=== PATIENT | female | born 1935 ===

== ENCOUNTER 2018-05-03 09:59 | Emergency (ER) | payer MEDICARE ==
[2018-05-03 10:18] VITALS: BP 146/69
--- NOTE | 2018-05-03 10:29 | ED ---
Medical Screening - HPI Summary HPI Summary: 82-year-old female presents for medication refill today. Since she's ran out of her levothyroxine. She lives in [place] and has a primary there but has not seen her recently. She has a follow-up in a month but has not had lab work done recently. She says she's been on this dose of levothyroxine for years. She denies any symptoms. No chest pain or shortness. She denies any fatigue. She has one dose of the medication left. - History of Current Complaint Chief Complaint: UCGeneralIllness Stated Complaint: REFILL RX Time Seen by Provider: 05/03/18 10:17 PMH/Surg Hx/FS Hx/Imm Hx Endocrine/Hematology History: Reports: Hx Thyroid Disease Cardiovascular History: Denies: Hx Myocardial Infarction - Surgical History Surgery Procedure, Year, and Place: hysterectomy. appendectomy. Laser eye surgery Infectious Disease History: No Infectious Disease History: Denies: Traveled Outside the [place] in Last 30 Days - Family History Known Family History: Positive: Other - thyroid - Social History Alcohol Use: None Substance Use Type: Reports: None Smoking Status (MU): Never Smoked Tobacco Review of Systems Negative: Fever Negative: Chest Pain Negative: Shortness Of Breath All Other Systems Reviewed And Are Negative: Yes Physical Exam Triage Information Reviewed: Yes Vital Signs On Initial Exam: Initial Vitals Temp Pulse Resp BP Pulse Ox 98.1 F 62 18 146/69 98 05/03/18 10:10 05/03/18 10:10 05/03/18 10:10 05/03/18 10:10 05/03/18 10:10 Vital Signs Reviewed: Yes Appearance: Positive: Well-Appearing Skin: Positive: Warm, Dry Head/Face: Positive: Normal Head/Face Inspection Eyes: Positive: Normal, Conjunctiva Clear ENT: Positive: Pharynx normal Respiratory/Lung Sounds: Positive: Clear to Auscultation, Breath Sounds Present Cardiovascular: Positive: Normal, RRR Abdomen Description: Positive: Nontender, Soft Bowel Sounds: Positive: Present Musculoskeletal: Positive: Normal Neurological: Positive: Normal Psychiatric: Positive: Normal Diagnostics - Vital Signs Vital Signs Temp Pulse Resp BP Pulse Ox 05/03/18 10:10 98.1 F 62 18 146/69 98 - Laboratory Lab Statement: Any lab studies that have been ordered have been reviewed, and results considered in the medical decision making process. Course/Dx - Course Course Of Treatment: 82-year-old female presents for medication refill today. Since she's ran out of her levothyroxine. She lives in [place] and has a primary there but has not seen her recently. She has a follow-up in a month but has not had lab work done recently. She says she's been on this dose of levothyroxine for years. She denies any symptoms. No chest pain or shortness. She denies any fatigue. She has one dose of the medication left. normal PE. will refill prescription but stressed importance of following up with primary to get lab work done and to follow up as blood pressure is elevated at this time. patient understand and agrees with plan. - Diagnoses Provider Diagnoses: Medication refill Discharge - Sign-Out/Discharge Documenting (check all that apply): Patient Departure - Discharge Plan Condition: Good Disposition: HOME Prescriptions: Levothyroxine TAB* [Synthroid 88 MCG TAB*] 88 mcg PO DAILY #30 tab Patient Education Materials: Levothyroxine (By mouth) Referrals: No Primary Care Phys,NOPCP [Primary Care Provider] - Additional Instructions: take medication once a day Follow up with primary for blood work Return to if develop any new or worsening symptoms - Billing Disposition and Condition Condition: GOOD Disposition: Home
== END 2018-05-03 10:34 | disposition home or self-care (01) ==
LOC: UCEAST 09:59
DX: Z76.0 Encounter for issue of repeat prescription (principal); E07.9 Disorder of thyroid, unspecified
CPT/HCPCS: 99202; G0463